=== PATIENT | female | born 1980 | race African-American/Black ===

== ENCOUNTER 2017-07-13 08:55 | Emergency (ER) | payer MEDICAID ==
[~2017-07-13] VITALS: Ht 154.9 cm; Wt 75.0 kg
[~2017-07-13 08:55] MED LIST: ALBU1AER INH; BACT800T5 PO; FERR325T PO; FOLI400T30 PO; METO25 PO; TYLE500T; VITA10002 PO
[2017-07-13 08:56] VITALS: BP 136/90; PULSE 72; RESP 16; TEMP 99.1; O2SAT 100
[2017-07-13] MEDS ORDERED: FERR325C PO (09:09)
[2017-07-13] MEDS ORDERED: METO25TA3 PO (09:09)
[2017-07-13] MEDS ORDERED: HYDR-3516 PO (09:09)
--- NOTE | 2017-07-13 09:31 | PD ---
HPI . Bleeding, Chief Complaint: Oral / Dental Pain or Problem Time Seen by Provider: 09:20 Travel History International Travel<30 days: No Contact w/Intl Traveler<30days: No Traveled to known affect area: No History of Present Illness HPI This patient presents with the chief complaint of bleeding following a dental procedure. She states that she had a tooth and some fragments cut out yesterday. She states that her sutures must have come loose and she started bleeding during the night last night. She states that the bleeding was severe during the night but has now stopped. She has not seen the dentist who did the procedure. PFSH Past Medical History Anemia: Yes Asthma: Yes Anxiety: Yes Cardiovascular Problems: Yes High Cholesterol: Yes Chest Pain: Yes Diminished Hearing: No Gastrointestinal Disorders: Yes GERD: Yes Headaches: Yes Hypertension: Yes Migraines: Yes Pneumonia: Yes Seizures: Yes ?: Not LMP: 06/30/17 : 6 Para: 4 Miscarriage: 2 Dilation and Curettage (D&C): Yes Tubal Ligation: Yes Past Surgical History Section: Yes (X 4) Other Surgery: Yes (CERVICAL CA BIOPSY) Social History Alcohol Use: No Tobacco Use: No Substance Use: No Allergies-Medications (Allergen,Severity, Reaction): Coded Allergies: aspirin (Unverified Allergy, Unknown, 07/13/17) Reported Meds & Prescriptions Reported Meds & Active Scripts Active Reported Hydrocodone-Acetaminophen 5-325 mg Tab 1 Tab PO Q4-6H PRN Iron (Ferrous Sulfate) 325 Mg Cap 325 Mg PO TIDPC Metoprolol Tartrate 25 Mg Tab 25 Mg PO BID Review of Systems Except as stated in HPI: all other systems reviewed are Neg General / Constitutional: No: Fever, Chills HENT: Positive: Dental Difficulties Physical Exam Narrative GENERAL: Awake and alert and in no acute distress SKIN: Warm and dry with no rash or lesions HEAD: Normocephalic/atraumatic EYES: Pupils are equal. Extraocular movements are intact ENT: She has had a recent dental extraction, right mandibular area (probably 2nd or 3rd molar). There is a resultant cavity in her gum. There is no active bleeding. There is no purulent drainage. The surrounding gum tissue is noninflamed appearing. NECK: No cervical lymphadenopathy. CARDIOVASCULAR: Regular rate and rhythm RESPIRATORY: Nonlabored MUSCULOSKELETAL: Atraumatic NEUROLOGICAL: Nonfocal PSYCHIATRIC: Appropriate mood and affect. Data Data Last Documented VS Vital Signs Date Time Temp Pulse Resp B/P (MAP) Pulse Ox O2 Delivery O2 Flow Rate FiO2 07/13/17 08:56 99.1 72 16 136/90 (105) 100 Room Air Orders Orders Ed Discharge Order (07/13/17 09:21) MDM Medical Decision Making Medical Screen Exam Complete: Yes Emergency Medical Condition: Yes Differential Diagnosis Differential diagnosis of a toothache includes but is not limited to dental caries, dental abscess, gingivitis, drug-seeking behavior. Narrative Course This patient presents stating that her gum was bleeding status post a dental extraction done yesterday. The bleeding has now stopped. She has not followed up with her dentist. I have instructed her to call the dentist. There is nothing that we need to do for her here today. Diagnosis Primary Impression: History of dental problems Patient Instructions: General Instructions Departure Forms: Tests/Procedures Additional Instructions: See the dentist who did the procedure Disposition: 01 DISCHARGE HOME Condition: Stable Delma Oviedo MD Jul 13, 2017 09:31
== END 2017-07-13 09:35 | disposition home or self-care (01) ==
LOC: NEPD 08:55
DX: K08.89 Other specified disorders of teeth and supporting structures (principal); D64.9 Anemia, unspecified; J45.909 Unspecified asthma, uncomplicated; F41.9 Anxiety disorder, unspecified; E78.00 Pure hypercholesterolemia, unspecified; K21.9 Gastro-esophageal reflux disease without esophagitis; I10 Essential (primary) hypertension; R56.9 Unspecified convulsions; Z79.899 Other long term (current) drug therapy
CPT/HCPCS: 99281

== ENCOUNTER 2018-01-09 10:34 | Emergency (ER) | payer MEDICAID ==
[~2018-01-09] VITALS: Ht 152.4 cm; Wt 75.0 kg
[~2018-01-09 10:34] MED LIST changes: -ALBU1AER INH; -BACT800T5 PO; +FERR325C PO; -FERR325T PO; -FOLI400T30 PO; +HYDR-3516 PO; -METO25 PO; +METO25TA3 PO; -TYLE500T; -VITA10002 PO
[2018-01-09 10:40] VITALS: BP 157/81; PULSE 75; RESP 16; TEMP 98; O2SAT 100
[2018-01-09] MEDS ORDERED: CEPH-460 PO (11:56)
--- NOTE | 2018-01-09 12:02 | PD ---
HPI Chief Complaint: Skin Problem Time Seen by Provider: 11:28 Travel History International Travel<30 days: No Contact w/Intl Traveler<30days: No Traveled to known affect area: No History of Present Illness HPI 38-year-old female presents to the emergency room for evaluation of draining keloid scar on her neck. She woke up this morning with a lot of pus-like drainage on her pillow. She has had a keloid scar since she was 12 but 3 years ago it began to intermittently become infected. She believes it becomes infected because of sweating. She usually goes to her primary care physician, Dr. Zhang, who occasionally prescribed her antibiotics. She was in the process of having the scars removed because of the frequency of infection but the primary care office closed prior to her referral. She has a new primary care physician around the corner but has not seen him yet. Patient reports history of palpitations for which she takes metoprolol but denies any other chronic medical conditions. She denies fever, chills, nausea, vomiting. PFSH Past Medical History Anemia: Yes Asthma: Yes Anxiety: Yes Cardiovascular Problems: Yes High Cholesterol: Yes Chest Pain: Yes Diminished Hearing: No Gastrointestinal Disorders: Yes GERD: Yes Headaches: Yes Hypertension: Yes Migraines: Yes Pneumonia: Yes Seizures: Yes ?: Not : 6 Para: 4 Miscarriage: 2 Dilation and Curettage (D&C): Yes Tubal Ligation: Yes Past Surgical History Section: Yes (X 4) Other Surgery: Yes (CERVICAL CA BIOPSY) Social History Alcohol Use: No Tobacco Use: No Substance Use: No Allergies-Medications (Allergen,Severity, Reaction): Coded Allergies: aspirin (Unverified Allergy, Unknown, 01/09/18) Reported Meds & Prescriptions Reported Meds & Active Scripts Active Keflex (Cephalexin) 500 Mg Capsule 500 Mg PO Q6H 10 Days Reported Hydrocodone-Acetaminophen 5-325 mg Tab 1 Tab PO Q4-6H PRN Metoprolol Tartrate 25 Mg Tab 25 Mg PO BID Review of Systems Except as stated in HPI: all other systems reviewed are Neg Physical Exam Narrative GENERAL: Well-nourished, well-developed female no acute distress. Afebrile. Ambulatory. SKIN: Focused skin assessment warm/dry. There is a large keloid scar in the midline neck with a small area of spontaneous drainage. It is mildly tender to palpation. No significant fluctuance. No induration. No surrounding erythema. No increased warmth. HEAD: Normocephalic. EYES: No scleral icterus. No injection or drainage. NECK: Supple, trachea midline. No JVD or lymphadenopathy. CARDIOVASCULAR: Regular rate and rhythm without murmurs, gallops, or rubs. RESPIRATORY: Breath sounds equal bilaterally. No accessory muscle use. PSYCHIATRIC: No delusional thought processes. No hallucinations. Data Data Last Documented VS Vital Signs Date Time Temp Pulse Resp B/P (MAP) Pulse Ox O2 Delivery O2 Flow Rate FiO2 01/09/18 10:40 98.0 75 16 157/81 (106) 100 MDM Medical Decision Making Medical Screen Exam Complete: Yes Emergency Medical Condition: Yes Medical Record Reviewed: Yes Differential Diagnosis Cyst, infected scar, abscess Narrative Course 38-year-old female presents to the emergency room for evaluation of draining scar for the past few days. Patient woke up this morning with significant drainage on her pillow. States it has intermittently gotten infected over the past 3 years. Physical exam reveals a large keloid scar in the midline neck with a small area of spontaneous drainage. It is mildly tender to palpation. No significant fluctuance. No induration. No surrounding erythema. No increased warmth. I do not suspect significant infection, MRSA, or abscess. Patient was discharged with prescription for Keflex and told to follow-up with a internal grinder tender. No indication for incision and drainage at this time. She understands and agrees to plan. Diagnosis Primary Impression: Keloid scar Referrals: Primary Care Physician Additional Instructions: Rest and drink plenty of fluids. Take Keflex as directed, until gone. Follow up with a primary care physician. Return to emergency room for worsening symptoms, as discussed. Scripts Cephalexin (Keflex) 500 Mg Capsule 500 MG PO Q6H for Infection for 10 Days, #40 CAP 0 Refills Prov: Noe Tai MD 01/09/18 Disposition: 01 DISCHARGE HOME Condition: Stable Michaelle Schwartz Jan 09, 2018 12:02
== END 2018-01-09 12:13 | disposition home or self-care (01) ==
LOC: NEPK 10:34
DX: L91.0 Hypertrophic scar (principal); I10 Essential (primary) hypertension; E78.00 Pure hypercholesterolemia, unspecified; J45.909 Unspecified asthma, uncomplicated; F41.9 Anxiety disorder, unspecified; Z79.899 Other long term (current) drug therapy
CPT/HCPCS: 99283